=== PATIENT | female | born 2000 | race Caucasian/White ===

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

== ENCOUNTER 2018-03-22 19:49 | Emergency (ER) | payer MEDICAID, OTHER ==
[~2018-03-22] VITALS: Ht 162.6 cm; Wt 93.0 kg
[2018-03-23] MEDS ORDERED: ACETAMINOPHEN 325MG TABLET PO STA (00:42)
[2018-03-23 02:49] VITALS: BP 107/60
== END 2018-03-23 02:50 | disposition home or self-care (01) ==
LOC: ER 20:21
DX: M94.0 Chondrocostal junction syndrome [Tietze] (principal); R00.0 Tachycardia, unspecified; R93.1 Abnormal findings on diagnostic imaging of heart and coronary circulation; R03.0 Elevated blood-pressure reading, without diagnosis of hypertension; Z90.89 Acquired absence of other organs
CPT/HCPCS: 71045; 81025; 93005; 99284; Z7610

== ENCOUNTER 2018-10-13 21:52 | Emergency (ER) | payer MEDICAID, OTHER ==
[~2018-10-13] VITALS: Ht 162.6 cm; Wt 89.0 kg
[2018-10-13 23:19] VITALS: BP 112/61
[2018-10-14] MEDS ORDERED: IBUPROFEN 600MG TABLET PO ONE (00:30)
== END 2018-10-14 03:00 | disposition home or self-care (01) ==
LOC: ER 21:52
DX: S80.11XA Contusion of right lower leg, initial encounter (principal); F12.10 Cannabis abuse, uncomplicated; Z98.890 Other specified postprocedural states; V03.99XA Pedestrian with other conveyance injured in collision with car, pick-up truck or van, unspecified whether traffic or nontraffic accident, initial encounter; Y93.89 Activity, other specified; Y92.89 Other specified places as the place of occurrence of the external cause; Y99.8 Other external cause status
CPT/HCPCS: 73552; 73590; 73630; 81025; 93971; 99284

== ENCOUNTER 2019-01-02 22:47 | Emergency (ER) | payer OTHER, MEDICAID ==
[~2019-01-02] VITALS: Ht 162.6 cm; Wt 92.0 kg
[2019-01-03 03:35] VITALS: BP 136/80
== END 2019-01-03 03:38 | disposition home or self-care (01) ==
LOC: ER 22:47
DX: J06.9 Acute upper respiratory infection, unspecified (principal); F12.10 Cannabis abuse, uncomplicated; F17.200 Nicotine dependence, unspecified, uncomplicated; Z98.890 Other specified postprocedural states
CPT/HCPCS: 99283

== ENCOUNTER 2022-11-14 22:49 | Emergency (ER) | payer OTHER, MEDICAID ==
[~2022-11-14] VITALS: Ht 162.6 cm; Wt 110.2 kg
[2022-11-15 00:31] LABS: BASOPHILS % 0.4 % (0.0-2.0); EOSINOPHILS % 2.4 % (0.0-5.0); HEMATOCRIT. 37.6 % (36.0-48.0); HEMOGLOBIN. 12.6 g/dL (12.0-16.0); LYMPHOCYTES % 34.9 % (20.0-50.0); MEAN CORPUSCULAR HEMOGLOBIN 31.6 pg (28.0-32.0); MEAN PLATELET VOLUME 8.6 fl (7.4-10.4); MONOCYTES % 6.3 % (2.0-8.0); PLATELET 328 x1000/uL (130-400); RED CELL DISTRIBUTION WIDTH 14.3 % (11.6-14.6)
[2022-11-15 00:38] LABS: CHLORIDE 107 mEq/L (98-107)
[2022-11-15 00:45] LABS: HCG SCREEN POSITIVE
[2022-11-15 01:02] LABS: B-HCG QUANTITATIVE 1364 mIU/mL (<3)
[2022-11-15 01:54] LABS: CLARITY URINE CLEAR (CLEAR); COLOR URINE YELLOW (YELLOW); KETONES URINE TRACE (NEGATIVE); LEUKOCYTE ESTERASE URINE NEGATIVE (NEGATIVE); NITRITE URINE NEGATIVE (NEGATIVE); OCCULT BLOOD URINE 2+ (NEGATIVE); PH URINE 5.5 (4.5-8.0); PROTEIN URINE NEGATIVE (NEGATIVE); SPECIFIC GRAVITY URINE 1.028 (1.005-1.030)
[2022-11-15] MEDS ORDERED: HYDR-4001 MT (03:42)
[2022-11-15] MEDS ORDERED: IBUP-2028 MT (03:43)
[2022-11-15 04:14] VITALS: BP 102/58
== END 2022-11-15 04:14 | disposition home or self-care (01) ==
LOC: ER 22:49
DX: G89.18 Other acute postprocedural pain (principal); F12.10 Cannabis abuse, uncomplicated; Z98.890 Other specified postprocedural states
CPT/HCPCS: 36415; 76830; 76856; 80053; 81003; 83690; 84702; 84703; 85025; 99284; Z7610